=== PATIENT | female | born 1950 | race Caucasian/White ===

== ENCOUNTER → 2023-12-27 07:33 | Outpatient (REF) | payer OTHER, SELFPAY | LOC: HWRAD 07:33 | PROVIDERS: ATTENDING PHYSICIAN Internal Medicine | DX: N93.8 Other specified abnormal uterine and vaginal bleeding (principal) | CPT/HCPCS: 76830; 76856 ==

== ENCOUNTER → 2024-02-24 15:05 | Outpatient (REF) | payer OTHER, SELFPAY | LOC: HWRAD 15:05 | PROVIDERS: ATTENDING PHYSICIAN Internal Medicine | DX: Z12.31 Encounter for screening mammogram for malignant neoplasm of breast (principal) | CPT/HCPCS: 77063; 77067; 77080 ==

== ENCOUNTER → 2024-07-27 06:35 | Day surgery (SDC) | payer OTHER, SELFPAY | LOC: GI 06:35 | PROVIDERS: ATTENDING PHYSICIAN Internal Medicine Gastroenterology | DX: Z12.11 Encounter for screening for malignant neoplasm of colon (principal); K64.8 Other hemorrhoids; D12.2 Benign neoplasm of ascending colon; K57.30 Diverticulosis of large intestine without perforation or abscess without bleeding; Z86.0100 Personal history of colon polyps, unspecified | CPT/HCPCS: 45380; 88305 ==

== ENCOUNTER → 2024-08-01 10:05 | Outpatient (REF) | payer OTHER, SELFPAY | LOC: RCS 10:05 | PROVIDERS: ATTENDING PHYSICIAN Internal Medicine | DX: I27.20 Pulmonary hypertension, unspecified (principal); I34.0 Nonrheumatic mitral (valve) insufficiency | CPT/HCPCS: 93306 ==

== ENCOUNTER → 2024-08-09 14:44 | Outpatient (REF) | payer OTHER, SELFPAY | LOC: HWRAD 14:44 | PROVIDERS: ATTENDING PHYSICIAN Internal Medicine | DX: G62.9 Polyneuropathy, unspecified (principal); M54.50 Low back pain, unspecified | CPT/HCPCS: 72110 ==

== ENCOUNTER → 2024-11-12 12:00 | Outpatient (REF) | payer OTHER, SELFPAY | LOC: DHSLP 12:00 | PROVIDERS: ATTENDING PHYSICIAN Internal Medicine; FAMILY PHYSICIAN Internal Medicine | DX: G47.30 Sleep apnea, unspecified (principal); R06.83 Snoring | CPT/HCPCS: 95800 ==

== ENCOUNTER → 2025-03-08 08:32 | Outpatient (REF) | payer OTHER, SELFPAY ==
[2025-03-08 13:23] LABS: ALT (SGPT) 14 U/L (0-35); AST (SGOT) 21 U/L (14-36); Albumin 4.3 g/dl (3.5-5.0); Alkaline Phosphatase 56 U/L (38-126); Blood Urea Nitrogen 16 mg/dl (7-17); Calcium 9.9 mg/dl (8.4-10.2); Carbon Dioxide 31 mmol/L (22-30); Chloride 107 mmol/L (98-107); Glucose 97 mg/dl (70-99); HDL Cholesterol 42 mg/dl; LDL Cholesterol, Calculated 76 mg/dl; Potassium 4.3 mmol/L (3.5-5.1); Sodium 145 mmol/L (135-145); Total Bilirubin 0.6 mg/dl (0.2-1.3); Total Cholesterol 141 mg/dl (50-199); Total Protein 6.9 g/dl (6.3-8.2); Triglyceride 118 mg/dl (10-149); Very Low Density Lipoprotein 23 mg/dl (0-30); eGFR > 60.00
[2025-03-08 14:36] LABS: Glycohemoglobin (HgbA1c) 5.5 % (4.0-5.6)
== END ==
LOC: HWWDC 08:32
PROVIDERS: ATTENDING PHYSICIAN Internal Medicine
DX: Z12.31 Encounter for screening mammogram for malignant neoplasm of breast (principal); E78.5 Hyperlipidemia, unspecified; R73.09 Other abnormal glucose
CPT/HCPCS: 36415; 80053; 80061; 83036

== ENCOUNTER 2025-08-12 17:47 | Emergency (ER) | payer OTHER, SELFPAY ==
[2025-08-12 18:02] VITALS: BP 129/81
[2025-08-12 18:25] LABS: Hematocrit 42.6 % (37.0-47.0); Hemoglobin 14.4 g/dL (12.0-16.0); Mean Corp Hgb Conc. 33.8 g/dL (33.0-37.0); Mean Corpuscular Volume 91.8 fL (81.0-99.0); Nucleated Red Blood Cells % 0 %; Platelet Count 258 10^3/uL (130-400); Red Cell Dist. Width 12.7 % (11.5-14.5)
[2025-08-12 18:43] LABS: ALT (SGPT) 16 U/L (0-35); AST (SGOT) 21 U/L (14-36); Albumin 4.4 g/dl (3.5-5.0); Alkaline Phosphatase 56 U/L (38-126); Blood Urea Nitrogen 17 mg/dl (7-17); Calcium 10.3 mg/dl (8.4-10.2); Carbon Dioxide 31 mmol/L (22-30); Chloride 105 mmol/L (98-107); Glucose 105 mg/dl (70-99); Potassium 4.3 mmol/L (3.5-5.1); Sodium 138 mmol/L (135-145); Total Protein 7.2 g/dl (6.3-8.2); eGFR > 60.00
[2025-08-12 19:02] LABS: Troponin I < 0.012 ng/ml
--- NOTE | 2025-08-12 20:18 | ED.GENMED ---
History of Present Illness
General
Chief Complaint: Dizziness
Time Seen by Provider: 08/12/25 20:18
History of Present Illness
History of Present Illness:
FOCUSED PAST MEDICAL HISTORY
- Hyperlipidemia
REVIEW OF OLD RECORDS
- Patient had colonoscopy in 2023 which showed internal hemorrhoids and diverticular disease.
Note:
CHIEF COMPLAINT(S)
Dizziness and balance issues.
HISTORY OF PRESENT ILLNESS
The patient is a 75-year-old female who reports experiencing dizziness and balance issues. The symptoms began mildly this morning, and she initially felt light-headed and off-balance upon waking. She described the condition as worsening this
afternoon, when she also experienced nausea and dizziness. The patient has had minor balance problems since yesterday, but these are not constant. She noted that she feels these symptoms are similar to vertigo, which she suspects due to the inner
ears possible involvement. The onset of this episode is new, although she has had some balance issues over the past few months. Nonetheless, these prior episodes were minor and not chronic. The patient previously consulted a neurologist, had tests
for neuropathy, which were unremarkable, but has not undergone any brain imaging. She performed well on peripheral nerve testing for coordination, such as the [id number] test, but had a positive result on the Kristina-Hallpike maneuver during today�s
assessment, indicating a possible inner ear issue such as benign paroxysmal positional vertigo (BPPV).
PAST MEDICAL AND SURIGICAL HISTORY
Diverticular disease
EXTERNAL RECORDS REVIEWED
The patient�s previous EKG records from 2021 did not show the right bundle branch block seen today.
PHYSICAL EXAM
General: Alert, no acute distress.
Skin: Warm, dry.
Head: Normocephalic, atraumatic.
Neck: Supple, trachea midline.
Eye, Ears, Nose, Mouth, and Throat: Oral mucosa moist.
Cardiovascular: Normal peripheral perfusion, No edema.
Respiratory: Respirations are non-labored. Regular rhythm.
Gastrointestinal: Abdomen nondistended.
Back: Normal range of motion, Normal alignment.
Musculoskeletal: Normal range of motion, normal strength.
Neurological: Alert and oriented to person, place, time, and situation. No focal neurological deficit observed. Positive Glenham-Hallpike maneuver. Normal [id number] testing bilaterally.
Psychiatric: Cooperative, appropriate mood & affect.
PLAN
1. A computed tomography (CT) scan of the brain will be conducted tonight to rule out possible intracranial causes of the symptoms.
2. Consider a referral to a vestibular therapist for further evaluation and management of vertigo.
3. Review CT scan results and discuss findings with the patient before discharge.
4. Continue monitoring cardiac status, though the right bundle branch block is deemed a benign finding unrelated to the current symptoms.
DIFFERENTIAL DIAGNOSIS
The Differential Diagnosis includes, in no particular order and is not limited to:
1. Benign Paroxysmal Positional Vertigo (BPPV)
2. Vestibular Neuritis or Labyrinthitis
3. Meniere�s Disease
4. Acoustic Neuroma
5. Central Vertigo (due to cerebrovascular accident or malignancy)
6. Orthostatic Hypotension
7. Medication side effect
8. Inner ear infection
9. Transient ischemic attack
10. Cardiovascular dysfunction affecting cerebral perfusion
RADIOLOGY
- Given patient's age, and worsening symptoms, CT head obtained.
EKG
- Sinus 64, right bundle branch block is new in comparison to 2020
LABS
- White count 12.7, hemoglobin 14.4, chemistries relatively unremarkable, troponin less than 0.012
UPDATE
-SUMMARY OF ENCOUNTER
The patient, a 75-year-old female, presented to the emergency department with complaints of dizziness and balance issues, which had worsened throughout the day. A CT scan of the brain was conducted to rule out intracranial causes such as tumors,
bleeding, or masses. The results of the CT scan were normal, showing no evidence of these conditions. Based on the clinical presentation and the positive Glenham-Hallpike maneuver, it is suspected that the symptoms are related to an inner ear issue,
likely benign paroxysmal positional vertigo (BPPV).
DISPOSITION
Discharge.
ASSESSMENT
The patients symptoms of dizziness and balance issues are likely related to an inner ear disorder, suspected to be benign paroxysmal positional vertigo (BPPV), with intracranial causes effectively ruled out by brain CT scan.
PLAN
The patient will be referred to a vestibular therapist for evaluation and management of vertigo. A paper prescription for vestibular therapy and a contact number for scheduling will be provided. The emergency department findings do not support a
brain-origin issue, hence discharge is deemed appropriate.
INDEPENDENT REVIEW OF LABS AND INTERPRETATION OF TESTS
My independent CT scan interpretation is normal, showing no signs of tumors, bleeding, or masses.
MEDICATION RECONCILIATION
Prescription for vestibular therapy.
MEDICAL DECISION MAKING
- Number and Complexity of Problems Addressed: Chronic conditions affecting care include history of dizziness and balance issues. DDx includes Benign Paroxysmal Positional Vertigo, Vestibular Neuritis or Labyrinthitis, Meniere�s Disease, Acoustic
Neuroma, Central Vertigo, Orthostatic Hypotension, Medication side effect, Inner ear infection, Transient ischemic attack, Cardiovascular dysfunction affecting cerebral perfusion.
- Data:
- Category 1: My independent interpretation of the CT scan shows no intracranial abnormalities.
- Category 2: External records reviewed include previous EKG records and a heart monitor report from approximately a year ago, revealing no significant findings previously.
- Risk: Consideration of Admission/Observation: Escalation of care including admission/observation was considered given the complexity and risk of the patients presenting complaint, exam findings, and/or their underlying comorbidities. However,
ultimately I feel the patient is safe for outpatient management with close follow-up. Reasoning: Work-up is reassuring, does not reveal any acute life/organ-threatening processes, patients symptoms well controlled upon reevaluation, reexamination is
reassuring, vitals are stable, patient agreeable with discharge, reliable for follow-up.
DIAGNOSIS
- Benign Paroxysmal Positional Vertigo (BPPV), ICD-10 code: H81.11.
Phy Exam
Physical Exam
Physical Exam:
See HPI
Course
Orders/Labs/Results
Orders:
Orders
08/12/25 18:05
EKG [Electrocardiogram (*1)] Urgent
Reason for Study: Chest Pain
EKG- Treatment ONCE
08/12/25 18:16
Complete Blood Count/With Diff Urgent
Comprehensive Metabolic Panel Urgent
Troponin I Urgent
08/12/25 20:28
CT Head W/o Iv Contrast Urgent
Comment:
Reason For Exam: worsening dizziness
Abnormal Lab Results
08/12/25
18:16
WBC 12.7 H 10^3/uL
(4.8-10.8)
Absolute Neuts (auto) 10.8 H 10^3/uL
(1.4-6.5)
Neutrophils % 84.9 H %
(42.2-75.2)
Lymphocytes % 10.9 L %
(20.5-51.1)
Carbon Dioxide 31 H mmol/L
(22-30)
Glucose 105 H mg/dl
(70-99)
Calcium 10.3 H mg/dl
(8.4-10.2)
08/12/25 18:16
08/12/25 18:16
Vital Signs
Initial and Last Documented VS:
Initial Vital Signs
Temp Pulse Resp BP Pulse Ox
36.6 C 65 18 129/81 97
08/12/25 18:02 08/12/25 18:02 08/12/25 18:02 08/12/25 18:02 08/12/25 18:02
Last Documented Vital Signs
Temp Pulse Resp BP Pulse Ox
36.6 C 66 17 128/60 95
08/12/25 18:02 08/12/25 22:21 08/12/25 22:21 08/12/25 22:21 08/12/25 22:21
*Pulse Oximetry
SaO2: 97
Oxygen Mode of Delivery: Room air
Patient hypoxic: no
*Critical Care Note
Total Time (30-74mins, 75-104mins- exclusive of procedures): Not Applicable
ED Attending Note
-
Portions of this chart may have been created with voice recognition software.� Occasional wrong word or��sound alike� substitutions may have occurred due to the inherent limitations of voice recognition software.
Discharge Plan
Departure
Patient Disposition: Home (Routine Discharge)
Date of Disposition: 08/12/25
Time of Disposition: 23:01
Patient with high blood pressure during this ER visit?: Yes
Discharge Problem:
Benign paroxysmal positional vertigo
Instructions: Vertigo (a Type of Dizziness) (DC), BLOOD PRESSURE
Referrals:
Lia Mckeon MD [Family Provider, Internal Medicine]
Activity Restrictions/Additional Instructions:
CAT scan of the brain shows no acute abnormality, basic blood work is relatively unremarkable. I am giving you a prescription for vestibular physical therapy. Call [phone] to arrange follow-up with physical therapy. Return if worse or other
concerns.
Interventions
Interventions:
*Risk Screen - Suicide Last Done: 08/12/25 18:02
*General Assessment Last Done: 08/12/25 18:02
*Neglect/Abuse Screening Last Done: 08/12/25 20:28
*ED- Fall Risk Assessment Last Done: 08/12/25 20:45
*ED COVID-19 Vaccine History Last Done: 08/12/25 18:02
*ED Influenza Vaccine History Last Done: 08/12/25 18:02
*Nursing Disposition Last Done: 08/12/25 23:08
ED- Neurological Assessment Last Done: 08/12/25 20:45
Discharge Date and Time
Discharge Date/Time: 08/12/25 23:08
Print Language: [id number]
[2025-08-12 20:34] VITALS: BP 119/51
[2025-08-12 22:21] VITALS: BP 128/60
== END 2025-08-12 23:08 | disposition home or self-care (01) ==
LOC: EMR 17:47
PROVIDERS: Emergency Medicine; EMERGENCY PHYSICIAN Emergency Medicine; FAMILY PHYSICIAN Internal Medicine
DX: H81.10 Benign paroxysmal vertigo, unspecified ear (principal); E78.00 Pure hypercholesterolemia, unspecified; Z87.19 Personal history of other diseases of the digestive system
CPT/HCPCS: 99284; 70450; 80053; 84484; 85025; 93005